=== PATIENT | male | born 1950 | race Caucasian/White ===

== ENCOUNTER 2016-08-30 10:04 | Inpatient (IN) | payer OTHER, MEDICARE ==
[2016-08-14 14:32] LABS: % IMMATURE GRANULYOCYTES 0.5 % (0.0-1.1); ABSOLUTE IMMATURE GRANULOCYTES 0.04 10^3/uL (0.00-0.10); ADD DIFF? NO; ADD MORPH? NO; ADD SCAN? NO; ATYPICAL LYMPHOCYTE FLAG 20 (0-99); FRAGMENT RBC FLAG 0 (0-99); HEMATOCRIT 39.5 % (40.0-51.0); HEMOGLOBIN 13.4 g/dL (13.7-17.5); LEFT SHIFT FLG 0 (0-99); LIPEMIA HEMOLYSIS FLAG 90 (0-99); MEAN CELL HEMOGLOBIN CONCENTR. 33.9 g/dL (32.4-36.7); MEAN CELL VOLUME 91.4 fL (81.5-99.8); MEAN PLATELET VOLUME 8.3 fL (8.7-11.7); PLATELET CLUMPS FLAG 10 (0-99); PLATELET COUNT 288 10^3/uL (150-400); RED BLOOD CELL COUNT 4.32 10^6/uL (4.40-6.38); RED CELL DISTRIBUTION WIDTH 13.1 % (11.5-15.2)
[~2016-08-30 10:04] MED LIST: CHLORHEXIDINE GLUC HIBICLENS 118 ML BTL TP ONE; DEXAMETHASONE 4 MG/ML VIAL IVP ONE; FAMOTIDINE 20 MG TAB PO ONE; ROPI/epiNEPH/KETOROLAC JOINT COCKTAIL IU ONE; SKIN ADHESIVE (DERMABOND) 1 EACH TP ONE; TRANEXAMIC ACID 3,000 MG in NS 50 ML IRR ONE; TRANEXAMIC ACID 3,000 MG/50 ML BAG IRR ONE
[2016-08-30] MEDS ORDERED: LIDOCAINE 1% 5 ML SDV ID PRN (10:47)
[2016-08-30] MEDS ORDERED: LR 1,000 ML IV ONE (10:47)
[2016-08-30] MEDS ORDERED: FAMOTIDINE 20 MG TAB ONE (10:54)
[2016-08-30] MEDS ORDERED: DEXAMETHASONE 4 MG/ML VIAL ONE (10:54)
[2016-08-30] MEDS ORDERED: ceFAZolin 2 GM/DEXTROSE 100 ML IV ONE (11:30)
[2016-08-30] MEDS ORDERED: LIDOCAINE 2% 100 MG/5 ML SYR ONE (13:11)
[2016-08-30] MEDS ORDERED: PROPOFOL/EMULSION 500 MG/50 ML BOTTLE IV ONE (13:11)
[2016-08-30] MEDS ORDERED: MIDAZOLAM 2 MG/2 ML VIAL ONE (13:15)
[2016-08-30] MEDS ORDERED: METOCLOPRAMIDE 10 MG/2 ML VIAL IVP PRN (14:45)
[2016-08-30] MEDS ORDERED: PROMETHAZINE HCL 25 MG SUPPR PR PRN (14:45)
[2016-08-30] MEDS ORDERED: DIPHENOXYLATE/ATROPINE LOMOTIL 1 TAB PO PRN (14:45)
[2016-08-30] MEDS ORDERED: CYCLOBENZAPRINE 10 MG TAB PO PRN (14:45)
[2016-08-30] MEDS ORDERED: PHARMACY PAIN CONSULT 1 EA MISC PRN (14:45)
[2016-08-30] MEDS ORDERED: TEMAZEPAM 15 MG CAP PO PRN (14:45)
[2016-08-30] MEDS ORDERED: ONDANSETRON DISINTEGRATING 4 MG TAB PO PRN (14:45)
[2016-08-30] MEDS ORDERED: MAGNESIUM HYDROXIDE 30 ML UDCUP PO PRN (14:45)
[2016-08-30] MEDS ORDERED: LACTULOSE 20 GM/30 ML UDCUP PO PRN (14:45)
[2016-08-30] MEDS ORDERED: POLYETHYLENE GLYCOL 3350 17 GM PKT PO PRN (14:45)
[2016-08-30] MEDS ORDERED: ONDANSETRON 4 MG/2 ML VIAL IVP PRN (14:45)
[2016-08-30] MEDS ORDERED: diphenhydrAMINE 25 MG CAP PO PRN (14:45)
[2016-08-30] MEDS ORDERED: BISACODYL 10 MG SUPP PR PRN (14:45)
--- NOTE | 2016-08-30 14:45 | POSTOPPROG ---
Post Op Note Date of Operation: 08/30/16 Surgeon: Huma Pettit Government Instructor: nolan pettit Anesthesiologist: dr. rwoe Anesthesia: Spinal Pre-op Diagnosis: left hip OA Post-op Diagnosis: same Indication: left hip pain due to OA that failed conservative measures Procedure: L SHE ant approach Findings: severe hip OA Inf/Abcess present in the surg proc area at time of surgery?: No EBL: 100-500
[2016-08-30] MEDS ORDERED: LR 1,000 ML IV SCH (15:00)
--- NOTE | 2016-08-30 20:32 | GOP ---
[f rep st] OPERATIVE REPORT DATE OF OPERATION: 08/30/2016 SURGEON: Pravin Torres MD AUTO APPRENTICE MECHANIC: DANNY Keller. ANESTHESIA: Spinal. PREOPERATIVE DIAGNOSIS: Left hip osteoarthritis. POSTOPERATIVE DIAGNOSIS: Left hip osteoarthritis. PROCEDURE PERFORMED: FINDINGS: ESTIMATED BLOOD LOSS: 200 cc. INDICATIONS: The patient has progressively worsening arthritis of the hip, which has failed medical management. The patient understands the treatment options, including continued non-operative care, and has selected surgical intervention. The patient has decided to undergo total hip arthroplasty via the direct anterior approach, understanding the risks of the procedure including, but not limite d to, neurovascular injury, infection, persistent pain, component wear and loosening, deep venous th rombosis, pulmonary embolism, limb length inequality, hip instability (including dislocation), and i ntra-operative fractures. DESCRIPTION OF PROCEDURE: After proper identification of the patient, including verification and ma rking the surgical site, the patient was brought to the operating room and placed in the supine posi tion. All bony prominences were well padded. Anesthesia was induced without complication, and intr avenous prophylactic antibiotics were administered prior to skin incision. The operative leg was placed in the Trumpf Arch table extension, and the well leg in a [place]ofin leg sanchez. The patient was prepped and draped in the usual sterile fashion. The C-arm was draped for intra-operative fluoroscopy to check acetabular position, femoral component position, including leg length and femoral offset. Attention was then drawn to surgical exposure of the hip. An incision was made with a #10 [place] er blade, starting 3 cm lateral and 3 cm distal to the anterior superior iliac spine, measuring 8-10 cm, and coursing distally toward the greater trochanter. The skin and subcutaneous tissues were di vided sharply down to the fascia mitchell. The fascia mitchell was incised in line with the skin incision, exposing the underlying tensor fascia mitcehll muscle. The muscle was bluntly elevated from the fascia, and the first extracapsular Cobra retractor was placed laterally at the junction of the superior fe moral neck and greater trochanter. The lateral femoral circumflex vessels were identified, cauteriz ed, and divided with the Aquamantys bipolar cautery. The deep investing fascia of the TFL was divid ed to allow proper mobilization of the muscle, preventing damage during the retraction. The reflect ed head of the rectus femoris muscle was elevated off the anterior hip capsule, and a medial Cobra r etractor was placed just proximal to the lesser trochanter. The anterior capsulotomy was made sharply from the superolateral acetabulum to the saddle junction o f the superior femoral neck and greater trochanter, then coursing inferomedial towards the lesser tr ochanter. The retractors were then placed in the intracapsular position for femoral neck osteotomy. Corresponding to pre-operative templating, the osteotomy was made with the oscillating saw, carefu lly protecting the greater trochanter and soft tissues. The femoral head was removed from the aceta bulum with a corkscrew and confirmed to be severely arthritic with exposed bone, deformity and osteo phytes. Similar findings were confirmed in the acetabulum. The Arch table extension was then place d in 40 degrees external rotation. Attention was then drawn to the acetabular preparation. After placement of the anterior and posteri or Cobra retractors outside the labrum and intracapsular, the circumferential labrum was removed sha rply. The foveal contents were then removed and hemostasis obtained with cautery. The first reamer selected was sized using the removed femoral head. Reaming began with medializatio n and then commenced in 2 mm increments at 45 degrees of abduction and 15 degrees of anteversion usi ng fluoroscopic navigation. Reaming ceased 1 mm less than the definitive acetabular component and c orresponded to the pre-operative templating. The final acetabular component was inserted using fluo roscopy to achieve proper orientation, yielding excellent purchase and stability in the acetabulum. The final acetabular liner was then placed and its seating confirmed. Attention was then turned to the femur. The Arch table extension was placed in extension and adduct ion, delivering the osteotomized femoral neck into the wound. A 2-pronged femoral elevator was plac ed at the calcar and another at the tip of the greater trochanter. The posterolateral capsule was r eleased with cautery, allowing mobilization of the femur lateral and anterior for preparation. The external rotators were visualized and preserved. A curette and rongeur were used to open the starti ng point for broaching. Serial broaching started with the #0 broach and ended with the broach that exhibited excellent fit in the proximal femur. A change in pitch during mallet strikes was accompan ied by the inability to advance the broach any further. The trial reduction was performed, and fluo roscopic navigation was utilized to check limb length. Adjustments were made to equalize limb lengt h accordingly. After the final trials were accepted, they were removed, and the wound was copiously lavaged. The f emoral component was seated to the same depth as the final broach, and the femoral head was impacted onto the clean trunnion. The hip was then reduced for the final time, and once more, fluoroscopy w as used to check that limb length equality was achieved. The wound was irrigated and closed in layers, the fascia mitchell with 2-0 Quill, the subcutaneous tissu e with 2-0 Quill, and the skin with Dermabond. Sterile dressings were applied. Final sharps and sp onge counts were accurate. The patient was then transferred to a hospital bed and brought to the re covery room in stable condition. PROCEDURE PERFORMED: Left total hip arthroplasty with x-ray. IMPLANTS: Accolade II size 5 at 132, acetabular component at 58 mm titanium, the liner is a Trident X3 36 mm, the head is a Biolox Delta 36 mm -2.5. /[id number]/MODL
[2016-08-30] MEDS: oxyCODONE IR 5 MG TAB PO PRN (21:45)
[2016-08-30] MEDS: ASPIRIN 325 MG TAB PO SCH (21:46)
[2016-08-30] MEDS: FAMOTIDINE 20 MG TAB PO SCH (21:47)
[2016-08-30] MEDS: ceFAZolin 2 GM/DEXTROSE 100 ML IV SCH (21:48)
[2016-08-30 23:05] VITALS: RESP 16
[2016-08-30] MEDS: SENNOSIDES/DOCUSATE SODIUM TAB PO SCH (23:16)
[2016-08-31] MEDS: ceFAZolin 2 GM/DEXTROSE 100 ML IV SCH (05:05)
[2016-08-31 05:14] LABS: HEMATOCRIT 32.9 % (40.0-51.0); HEMOGLOBIN 11.2 g/dL (13.7-17.5)
[2016-08-31 07:17] VITALS: BP 144/89; PULSE 78; TEMP 98.4; O2SAT 99
[2016-08-31] MEDS ORDERED: predniSONE 1 MG TAB PO SCH (09:00)
[2016-08-31] MEDS ORDERED: LEFLUNOMIDE 20 MG TAB PO SCH (09:00)
[2016-08-31] MEDS: ASPIRIN 325 MG TAB PO SCH (09:36)
[2016-08-31] MEDS: FAMOTIDINE 20 MG TAB PO SCH (09:36)
[2016-08-31] MEDS: SENNOSIDES/DOCUSATE SODIUM TAB PO SCH (09:38)
[2016-08-31] MEDS: oxyCODONE IR 5 MG TAB PO PRN (09:40)
--- NOTE | 2016-08-31 09:55 | SOAPPROG ---
SOAP Progress Note Assessment/Plan: Assessment: Ken is doing well today POD 1 s/p L SHE 1. pain management: well controlled on oral pain meds 2. VTE ppx: recommend ASA daily for 3 weeks. continue BRO corale and SCD 3.anemia: level expected initially postop, asymptomatic 4. d/c planning : d/c to home pending release from PT Plan: 08/31/16 09:54 Subjective: Ken is doing well today, denies SOB, chest pain and N/V. Objective: Vital Signs Temp Pulse Resp BP Pulse Ox 36.9 C 78 16 144/89 H 99 08/31/16 07:16 08/31/16 07:16 08/31/16 07:16 08/31/16 07:16 08/31/16 07:16 Laboratory Results 08/31/16 04:40 08/30/16 08/31/16 09/01/16 05:59 05:59 06:59 Intake Total 2280 Output Total 1050 Balance 1230 LLE: incision dressing is clean and dry, NVI, +pf/df ICD10 Worksheet Patient Problems: Problems Problem Status Onset Primary localized osteoarthritis of left hip Acute
== END 2016-08-31 10:48 | disposition home or self-care (01) | DRG 470 ==
LOC: F3N 10:04
PROVIDERS: ADMIT Orthopaedic Surgery; ATTEND Orthopaedic Surgery
PROC: 0SRB0JZ Replacement of Left Hip Joint with Synthetic Substitute, Open Approach (ICD-10-PCS; principal; 2016-08-30 12:15)
DX: M16.12 Unilateral primary osteoarthritis, left hip (principal); M35.3 Polymyalgia rheumatica; Z96.651 Presence of right artificial knee joint
CPT/HCPCS: 97161-GP; 97165-GO; G8978-GP-CI; G8979-GP-CI; G8980-GP-CI; G8987-GO-CI; G8988-GO-CI; G8989-GO-CI; J0171; J0690; J1100; J1885; J2001; J2250; J2704; J2795

== ENCOUNTER → 2018-06-17 | Outpatient (CLI) | payer OTHER, MEDICARE | LOC: FLAB 14:25 | PROVIDERS: ATTEND Internal Medicine | DX: Z01.818 Encounter for other preprocedural examination (principal) | CPT/HCPCS: 82607-90 ==